=== PATIENT | male | born 1970 | race Caucasian/White ===

== ENCOUNTER 2018-06-17 10:14 | Inpatient (IN) | payer SELFPAY ==
[~2018-06-17] VITALS: Ht 167.6 cm; Wt 108.4 kg
[2018-06-17] MEDS ORDERED: SODIUM CHLORIDE 0.9% 1,000 ML IV ONE (12:30)
[2018-06-17] MEDS ORDERED: ACETAMINOPHEN 325MG TABLET PO ONE (12:30)
[2018-06-17 14:19] LABS: CHLORIDE 95 mEq/L (98-107)
[2018-06-17 14:21] LABS: HEMOGLOBIN. 7.3 g/dL (14.0-18.0); MEAN CORPUSCULAR HEMOGLOBIN 35.3 pg (28.0-32.0); MEAN CORPUSCULAR VOLUME 101.3 fL (80.0-94.0); PLATELET 97 x1000/uL (130-400); RED BLOOD CELL COUNT 2.07 mill/uL (4.7-6.1); RED CELL DISTRIBUTION WIDTH 15.6 % (11.6-14.6)
[2018-06-17 14:27] LABS: INR 1.6; PARTIAL THROMBOPLASTIN TIME 36.8 sec (23.4-31.0); PROTHROMBIN TIME 15.7 sec (9.1-11.1)
[2018-06-17] MEDS ORDERED: HYDROCODONE/ACETAMINOPHEN 5/325MG TABLET PO ONE (14:30)
[2018-06-17 14:45] LABS: HEPATITIS B SURFACE ANTIGEN NEGATIVE
[2018-06-17 15:13] LABS: HEPATITIS B CORE AB IGM NEGATIVE
[2018-06-17 15:15] LABS: HEPATITIS A AB IGM NEGATIVE (NEGATIVE)
[2018-06-17 15:17] LABS: PLATELET ESTIMATE DECREASED
[2018-06-17] MEDS ORDERED: VANCOMYCIN 1 G PREMIX 200 ML IV ONE (18:30)
[2018-06-17] MEDS ORDERED: PIPERACILLIN/TAZ 2.25G PREMIX 50 ML IV ONE (18:30)
[2018-06-17] MEDS ORDERED: NA PHOS,M-B/NA PHOS,DI-BA ENEMA 118ML PR PRN (18:45)
[2018-06-17] MEDS ORDERED: CLONIDINE 0.1MG TABLET PO PRN (18:45)
[2018-06-17] MEDS ORDERED: DIPHENHYDRAMINE 50MG/ML VIAL IV PRN (18:45)
[2018-06-17] MEDS ORDERED: MAGNESIUM/ALUMINUM HYDROXIDE/SIMETHICONE 30ML UDC PO PRN (18:45)
[2018-06-17] MEDS ORDERED: ONDANSETRON HCL 4MG/2ML INJ IV PRN (18:45)
[2018-06-17] MEDS ORDERED: GUAIFENESIN 200MG/10ML SUGAR FREE UDC PO PRN (18:45)
[2018-06-17] MEDS ORDERED: DOCUSATE SODIUM 100MG CAPSULE PO PRN (18:45)
[2018-06-17] MEDS ORDERED: IPRATROPIUM/ALBUTEROL 0.5-3(2.5)MG/3ML NEB INH PRN (18:45)
[2018-06-17 19:19] LABS: VITAMIN B12 SERUM > 2000.0 pg/mL (211-911)
[2018-06-17 19:41] LABS: ETHANOL BLOOD < 10 mg/dL
[2018-06-17 19:44] LABS: TOTAL IRON BINDING CAPACITY 152 ug/dL (250-450)
[2018-06-17 23:00] VITALS: BP 127/52
[2018-06-17] MEDS ORDERED: ZOLPIDEM TARTRATE 5MG TABLET PO PRN (23:06)
[2018-06-17] MEDS ORDERED: KETOROLAC 15MG/ML VIAL IV PRN (23:06)
[2018-06-18] VITALS (7 sets, daily range): BP systolic 96–136; BP diastolic 44–65
[2018-06-18] MEDS ORDERED: PHYTONADIONE 10 MG in DEXTROSE 5% WATER 50 ML IV SCH (01:00)
[2018-06-18] MEDS ORDERED: CLINDAMYCIN 600 MG in DEXTROSE 5% WATER 50 ML IV SCH (01:00)
[2018-06-18 01:25] LABS: CREATINE KINASE 274 IU/L (39-308)
[2018-06-18 01:26] LABS: CREATINE KINASE MB FRACTION 3.5 ng/mL (0.5-3.6)
[2018-06-18 07:11] LABS: CHLORIDE 100 mEq/L (98-107)
[2018-06-18 07:20] LABS: CREATINE KINASE 191 IU/L (39-308)
[2018-06-18 08:15] LABS: MEAN CORPUSCULAR HEMOGLOBIN 36.3 pg (28.0-32.0); MEAN CORPUSCULAR VOLUME 102.1 fL (80.0-94.0); MEAN PLATELET VOLUME 11.1 fl (7.4-10.4); PLATELET 87 x1000/uL (130-400); RED BLOOD CELL COUNT 1.86 mill/uL (4.7-6.1); RED CELL DISTRIBUTION WIDTH 15.6 % (11.6-14.6)
[2018-06-18 08:15] LABS: *BARBITURATES SCREEN URINE NEGATIVE (NEGATIVE); *BENZODIAZEPINES SCREEN URINE NEGATIVE (NEGATIVE); *COCAINE SCREEN URINE NEGATIVE (NEGATIVE)
[2018-06-18 08:16] LABS: CANNABINOID URINE SCREEN NEGATIVE (NEGATIVE); METHADONE URINE SCREEN NEGATIVE (NEGATIVE); OPIATES URINE SCREEN PRESUMTIVE POSITIVE (NEGATIVE)
[2018-06-18 08:17] LABS: *AMPHETAMINES SCREEN URINE NEGATIVE (NEGATIVE); PHENCYCLIDINE URINE SCREEN NEGATIVE (NEGATIVE)
[2018-06-18 08:41] LABS: HEMOGLOBIN. 6.7 g/dL (14.0-18.0)
[2018-06-18] MEDS: CLINDAMYCIN 600MG PREMIX 50 ML IV SCH ×2 (09:15→16:30)
[2018-06-18] MEDS: ACETAMINOPHEN 325MG TABLET PO PRN ×2 (09:15→16:45)
[2018-06-18] MEDS: PANTOPRAZOLE SODIUM 40 MG/VIAL IV SCH (09:15)
[2018-06-18] MEDS ORDERED: PHYTONADIONE 10MG/ML AMP SUBCUT NR (12:45)
[2018-06-18 16:34] LABS: PLATELET ESTIMATE DECREASED
[2018-06-18 17:12] LABS: HEMATOCRIT 22.7 % (42.0-52.0); HEMOGLOBIN 7.9 g/dL (14.0-18.0)
[2018-06-18 17:17] LABS: INR 1.5; PROTHROMBIN TIME 15.2 sec (9.1-11.1)
[2018-06-19] VITALS (9 sets, daily range): BP systolic 112–127; BP diastolic 45–63
[2018-06-19] MEDS: CLINDAMYCIN 600MG PREMIX 50 ML IV SCH ×3 (00:46→16:29)
[2018-06-19] MEDS ORDERED: PHYTONADIONE 10MG/ML AMP SUBCUT NR (05:00)
[2018-06-19 06:37] LABS: INR 1.5; PROTHROMBIN TIME 15.4 sec (9.1-11.1)
[2018-06-19 06:41] LABS: AMMONIA 54 uMol/L (<32)
[2018-06-19 06:52] LABS: HEMATOCRIT. 22.6 % (42.0-52.0); MEAN CORPUSCULAR VOLUME 101.5 fL (80.0-94.0); MEAN PLATELET VOLUME 10.5 fl (7.4-10.4); PLATELET 92 x1000/uL (130-400); RED BLOOD CELL COUNT 2.22 mill/uL (4.7-6.1); RED CELL DISTRIBUTION WIDTH 16.4 % (11.6-14.6)
[2018-06-19 07:24] LABS: CHLORIDE 102 mEq/L (98-107)
[2018-06-19] MEDS: ACETAMINOPHEN 325MG TABLET PO PRN (08:03)
[2018-06-19] MEDS: PANTOPRAZOLE SODIUM 40 MG/VIAL IV SCH (08:37)
[2018-06-19] MEDS ORDERED: MIDAZOLAM HCL 5 MG/5 ML VIAL ONE (11:40)
[2018-06-19] MEDS ORDERED: DIPHENHYDRAMINE 50MG/ML VIAL ONE ×2 (11:40→12:22)
[2018-06-19] MEDS ORDERED: SIMETHICONE 40 MG/0.6 ML 30ML ONE (11:40)
[2018-06-19] MEDS ORDERED: FENTANYL CITRATE/PF 50MCG/ML 2ML VIAL ONE (11:41)
[2018-06-19] MEDS ORDERED: MIDAZOLAM HCL 2 MG/2 ML VIAL IV PRN (12:05)
[2018-06-19] MEDS ORDERED: FENTANYL CITRATE/PF 50MCG/ML 2ML VIAL IV PRN (12:06)
[2018-06-19] MEDS ORDERED: DIPHENHYDRAMINE 50MG/ML VIAL IV PRN (12:09)
[2018-06-19] MEDS ORDERED: SODIUM CHLORIDE 0.9% 10ML VIAL ONE (13:30)
[2018-06-19 14:20] LABS: PLATELET ESTIMATE DECREASED
[2018-06-20] MEDS: CLINDAMYCIN 600MG PREMIX 50 ML IV SCH ×2 (00:17→09:36)
[2018-06-20 04:00] VITALS: BP 114/51
[2018-06-20] MEDS ORDERED: PHYTONADIONE 10MG/ML AMP SUBCUT NR (07:00)
[2018-06-20 08:00] VITALS: BP 122/60
[2018-06-20] MEDS: PANTOPRAZOLE SODIUM 40 MG/VIAL IV SCH (09:37)
[2018-06-20 12:00] VITALS: BP 118/74
[2018-06-20 14:57] VITALS: BP 118/74
== END 2018-06-20 15:45 | disposition home or self-care (01) | DRG 280 ==
LOC: ER 10:14 → 7WST 18:13 → ENRESERV 20:42 → EDBEDREQ 22:41
PROVIDERS: ADMIT Internal Medicine; ATTEND Internal Medicine
PROC: 30233N1 Transfusion of Nonautologous Red Blood Cells into Peripheral Vein, Percutaneous Approach (ICD-10-PCS; principal; 2018-06-18)
PROC: 0DB78ZX Excision of Stomach, Pylorus, Via Natural or Artificial Opening Endoscopic, Diagnostic (ICD-10-PCS; 2018-06-19)
PROC: 06L38CZ Occlusion of Esophageal Vein with Extraluminal Device, Via Natural or Artificial Opening Endoscopic (ICD-10-PCS; 2018-06-19)
DX: K70.31 Alcoholic cirrhosis of liver with ascites (principal); E43 Unspecified severe protein-calorie malnutrition; D61.818 Other pancytopenia; D68.8 Other specified coagulation defects; D62 Acute posthemorrhagic anemia; E87.1 Hypo-osmolality and hyponatremia; I85.10 Secondary esophageal varices without bleeding; L03.116 Cellulitis of left lower limb; F10.10 Alcohol abuse, uncomplicated; K29.60 Other gastritis without bleeding; K31.89 Other diseases of stomach and duodenum; R07.89 Other chest pain; F17.210 Nicotine dependence, cigarettes, uncomplicated; Z68.38 Body mass index [BMI] 38.0-38.9, adult
CPT/HCPCS: 36415; 71045; 73590; 73630; 76705; 80053; 80076; 80305; 82140; 82248; 82270; 82550; 82553; 82607; 82746; 83036; 83540; 83550; 83880; 84484; 85014; 85018; 85025; 85049; 85384; 85610; 85730; 86705; 86709; 86803; 86850; 86900; 86920; 87040; 87086; 87340; 88305; 88312; 88313; 93005; 93970; 96365; 96366; 99152; 99285; A4216; C9113; G0482; J1200; J1885; J2250; J2543; J3010; J3370; J3430; J3490; J7030; J7040; J7050; J7060; P9016

== ENCOUNTER 2018-07-18 19:42 | Inpatient (IN) | payer SELFPAY ==
[~2018-07-18] VITALS: Ht 170.2 cm; Wt 111.1 kg
[2018-07-18] MEDS ORDERED: ONDANSETRON HCL 4MG/2ML INJ IV STA (21:16)
[2018-07-18] MEDS ORDERED: MORPHINE SULFATE 4 MG/ML CPJ (NOT FOR IM USE) IV STA (21:16)
[2018-07-18] MEDS ORDERED: SODIUM CHLORIDE 0.9% 1,000 ML IV ONE (21:19)
[2018-07-18] MEDS ORDERED: VANCOMYCIN 1 G PREMIX 200 ML IV ONE (21:30)
[2018-07-18] MEDS ORDERED: PIPERACILLIN/TAZ 3.375G PREMIX 50 ML IV ONE (21:30)
[2018-07-18 23:57] LABS: HEMOGLOBIN. 9.6 g/dL (14.0-18.0); MEAN CORPUSCULAR HEMOGLOBIN 31.9 pg (28.0-32.0); MEAN CORPUSCULAR VOLUME 93.4 fL (80.0-94.0); MEAN PLATELET VOLUME 9.4 fl (7.4-10.4); PLATELET 107 x1000/uL (130-400); RED CELL DISTRIBUTION WIDTH 15.4 % (11.6-14.6)
[2018-07-19 00:06] LABS: INR 1.5; PARTIAL THROMBOPLASTIN TIME 35.1 sec (23.4-31.0); PROTHROMBIN TIME 14.8 sec (9.1-11.1)
[2018-07-19 00:07] LABS: CHLORIDE 107 mEq/L (98-107)
[2018-07-19] MEDS ORDERED: FUROSEMIDE 40MG/4ML VIAL IV ONE (00:30)
[2018-07-19] MEDS ORDERED: NITROGLYCERIN OINT 1GM/INCH UDPKT TD ONE (00:30)
[2018-07-19] MEDS ORDERED: ASPIRIN 81MG TABLET PO ONE (00:30)
[2018-07-19 00:31] LABS: PLATELET ESTIMATE SLIGHTL
[2018-07-19 01:02] LABS: CLARITY URINE CLEAR (CLEAR); COLOR URINE DARK YELLOW (YELLOW); KETONES URINE TRACE (NEGATIVE); LEUKOCYTE ESTERASE URINE NEGATIVE (NEGATIVE); NITRITE URINE NEGATIVE (NEGATIVE); OCCULT BLOOD URINE NEGATIVE (NEGATIVE); PROTEIN URINE NEGATIVE (NEGATIVE); SPECIFIC GRAVITY URINE 1.025 (1.005-1.030)
[2018-07-19] MEDS ORDERED: POTASSIUM CHLORIDE 20MEQ TABLET SR PO ONE (01:45)
[2018-07-19] MEDS ORDERED: KETOROLAC 30MG/ML VIAL IV ONE (04:00)
[2018-07-19 08:00] VITALS: BP 123/59
[2018-07-19] MEDS ORDERED: DEXTROSE 50% WATER 50ML SYRINGE IV PRN (09:00)
[2018-07-19] MEDS ORDERED: ONDANSETRON HCL 4MG/2ML INJ IV PRN (09:00)
[2018-07-19] MEDS ORDERED: ACETAMINOPHEN 650MG SUPP PR PRN (09:00)
[2018-07-19] MEDS: PIPERACILLIN/TAZ 3.375G PREMIX 50 ML IV SCH ×2 (09:00→17:00)
[2018-07-19] MEDS ORDERED: ACETAMINOPHEN 325MG TABLET PO PRN (09:00)
[2018-07-19] MEDS ORDERED: POTASSIUM CHLORIDE 20MEQ TABLET SR PO PRN (09:00)
[2018-07-19] MEDS ORDERED: DOCUSATE SODIUM 100MG CAPSULE PO PRN (09:00)
[2018-07-19] MEDS ORDERED: GUAIFENESIN 200MG/10ML SUGAR FREE UDC PO PRN (09:00)
[2018-07-19] MEDS ORDERED: MAGNESIUM/ALUMINUM HYDROXIDE/SIMETHICONE 30ML UDC PO PRN (09:00)
[2018-07-19] MEDS ORDERED: ACETAMINOPHEN 650MG/20.3ML UDC GT PRN (09:00)
[2018-07-19] MEDS ORDERED: NA PHOS,M-B/NA PHOS,DI-BA ENEMA 118ML PR PRN (09:00)
[2018-07-19] MEDS ORDERED: CLONIDINE 0.1MG TABLET PO PRN (09:00)
[2018-07-19] MEDS ORDERED: IPRATROPIUM/ALBUTEROL 0.5-3(2.5)MG/3ML NEB INH PRN (09:00)
[2018-07-19 10:39] VITALS: BP 123/59
[2018-07-19 10:40] LABS: CHLORIDE 106 mEq/L (98-107)
[2018-07-19 10:47] LABS: HDL CHOLESTEROL 31 mg/dL (40-59); LDL CHOLESTEROL 69 mg/dL (5-100)
[2018-07-19] MEDS ORDERED: VANCOMYCIN 1 G PREMIX 200 ML IV SCH (11:00)
[2018-07-19 11:36] LABS: HEPATITIS B SURFACE ANTIGEN NEGATIVE
[2018-07-19] MEDS: BLOOD SUGAR DIAGNOSTIC STRIP TEST SCH ×3 (11:45→21:25)
[2018-07-19 11:48] LABS: HEMATOCRIT. 27.9 % (42.0-52.0); HEMOGLOBIN. 9.4 g/dL (14.0-18.0); MEAN CORPUSCULAR HEMOGLOBIN 31.8 pg (28.0-32.0); MEAN CORPUSCULAR VOLUME 94.4 fL (80.0-94.0); MEAN PLATELET VOLUME 9.8 fl (7.4-10.4); PLATELET 99 x1000/uL (130-400); RED BLOOD CELL COUNT 2.96 mill/uL (4.7-6.1); RED CELL DISTRIBUTION WIDTH 15.2 % (11.6-14.6)
[2018-07-19 12:00] VITALS: BP 144/37
[2018-07-19 12:04] LABS: HEPATITIS B CORE AB IGM NEGATIVE
[2018-07-19 12:06] LABS: HEPATITIS A AB IGM NEGATIVE (NEGATIVE)
[2018-07-19] MEDS: INSULIN LISPRO 100 UNITS/ML SUBCUT SCH ×3 (12:15→21:00)
[2018-07-19] MEDS: HYDROCODONE/ACETAMINOPHEN 10/325MG TABLET PO PRN ×2 (13:21→21:25)
[2018-07-19] MEDS ORDERED: INFLUENZA VIRUS VACCINE(AFLURIA) 0.5ML SYR IM ONE (14:00)
[2018-07-19] MEDS ORDERED: PNEUMOCOCCAL 23-VAL P-SAC VAC 0.5 ML IM ONE (14:00)
[2018-07-19] MEDS: SODIUM CHLORIDE 0.9% INJ 3ML FLUSH IVF SCH ×2 (14:18→22:00)
[2018-07-19 15:39] LABS: CREATINE KINASE 138 IU/L (39-308); CREATINE KINASE MB FRACTION 1.1 ng/mL (0.5-3.6)
[2018-07-19 16:00] VITALS: BP 113/50
[2018-07-19 16:15] LABS: CLARITY URINE CLEAR (CLEAR); COLOR URINE YELLOW (YELLOW); KETONES URINE NEGATIVE (NEGATIVE); LEUKOCYTE ESTERASE URINE NEGATIVE (NEGATIVE); NITRITE URINE NEGATIVE (NEGATIVE); OCCULT BLOOD URINE NEGATIVE (NEGATIVE); PH URINE 6.5 (4.5-8.0); PROTEIN URINE NEGATIVE (NEGATIVE); SPECIFIC GRAVITY URINE 1.008 (1.005-1.030); UROBILINOGEN URINE 0.2 E.U./dL (0.2-1.0)
[2018-07-19 16:44] LABS: *AMPHETAMINES SCREEN URINE NEGATIVE (NEGATIVE); *BARBITURATES SCREEN URINE NEGATIVE (NEGATIVE); *BENZODIAZEPINES SCREEN URINE NEGATIVE (NEGATIVE); *COCAINE SCREEN URINE NEGATIVE (NEGATIVE)
[2018-07-19 16:45] LABS: CANNABINOID URINE SCREEN NEGATIVE (NEGATIVE); METHADONE URINE SCREEN NEGATIVE (NEGATIVE); OPIATES URINE SCREEN PRESUMTIVE POSITIVE (NEGATIVE); PHENCYCLIDINE URINE SCREEN NEGATIVE (NEGATIVE)
[2018-07-19 20:00] VITALS: BP 114/58
[2018-07-19] MEDS: VANCOMYCIN 1 G PREMIX 200 ML IV SCH (21:59)
[2018-07-20] VITALS: BP 110/49
[2018-07-20 00:14] LABS: CREATINE KINASE 113 IU/L (39-308); CREATINE KINASE MB FRACTION 1.1 ng/mL (0.5-3.6)
[2018-07-20] MEDS: PIPERACILLIN/TAZ 3.375G PREMIX 50 ML IV SCH ×4 (02:38→23:59)
[2018-07-20 04:00] VITALS: BP 113/53
[2018-07-20 06:20] LABS: HEMATOCRIT. 27.3 % (42.0-52.0); HEMOGLOBIN. 9.1 g/dL (14.0-18.0); MEAN CORPUSCULAR HEMOGLOBIN 31.3 pg (28.0-32.0); MEAN PLATELET VOLUME 9.5 fl (7.4-10.4); PLATELET 96 x1000/uL (130-400); RED CELL DISTRIBUTION WIDTH 15.3 % (11.6-14.6)
[2018-07-20 06:47] LABS: CHLORIDE 106 mEq/L (98-107)
[2018-07-20] MEDS: VANCOMYCIN 1 G PREMIX 200 ML IV SCH ×3 (07:03→20:51)
[2018-07-20] MEDS: BLOOD SUGAR DIAGNOSTIC STRIP TEST SCH ×4 (07:04→20:51)
[2018-07-20] MEDS: INSULIN LISPRO 100 UNITS/ML SUBCUT SCH ×4 (07:04→20:52)
[2018-07-20] MEDS: SODIUM CHLORIDE 0.9% INJ 3ML FLUSH IVF SCH ×3 (07:04→20:51)
[2018-07-20] MEDS: HYDROCODONE/ACETAMINOPHEN 10/325MG TABLET PO PRN (07:09)
[2018-07-20 08:00] VITALS: BP 121/55
[2018-07-20 08:16] LABS: PLATELET ESTIMATE SLIGHTLY DECREASED
[2018-07-20 11:11] LABS: PLATELET ESTIMATE SLIGHTLY DECREASED
[2018-07-20 12:00] VITALS: BP 106/50
[2018-07-20 16:00] VITALS: BP 114/43
[2018-07-20 20:00] VITALS: BP 121/44
[2018-07-20] MEDS: HYDROCODONE/ACETAMINOPHEN 5/325MG TABLET PO PRN (23:59)
[2018-07-21] VITALS: BP 121/58
[2018-07-21 04:00] VITALS: BP 119/47
[2018-07-21] MEDS: VANCOMYCIN 1 G PREMIX 200 ML IV SCH ×3 (05:42→22:21)
[2018-07-21] MEDS: SODIUM CHLORIDE 0.9% INJ 3ML FLUSH IVF SCH ×3 (05:42→22:28)
[2018-07-21] MEDS: INSULIN LISPRO 100 UNITS/ML SUBCUT SCH ×4 (05:47→20:23)
[2018-07-21] MEDS: BLOOD SUGAR DIAGNOSTIC STRIP TEST SCH ×4 (05:47→20:23)
[2018-07-21 08:00] VITALS: BP 124/64
[2018-07-21] MEDS: PIPERACILLIN/TAZ 3.375G PREMIX 50 ML IV SCH ×2 (09:03→17:04)
[2018-07-21] MEDS: HYDROCODONE/ACETAMINOPHEN 5/325MG TABLET PO PRN (09:11)
[2018-07-21] MEDS ORDERED: LIDOCAINE HCL/PF 1% 10 MG/ML 30ML VIAL INFIL SCH (10:00)
[2018-07-21] MEDS ORDERED: LIDOCAINE HCL 1% 20ML VIAL (Pyxis) INJ INJ SCH (10:15)
[2018-07-21 12:00] VITALS: BP 94/53
[2018-07-21] MEDS: HYDROCODONE/ACETAMINOPHEN 10/325MG TABLET PO PRN ×2 (14:32→22:38)
[2018-07-21 16:00] VITALS: BP 113/45
[2018-07-21 20:00] VITALS: BP 126/56
[2018-07-22] VITALS: BP 102/51
[2018-07-22] MEDS: PIPERACILLIN/TAZ 3.375G PREMIX 50 ML IV SCH ×3 (02:28→16:53)
[2018-07-22 04:00] VITALS: BP 110/50
[2018-07-22] MEDS: BLOOD SUGAR DIAGNOSTIC STRIP TEST SCH ×3 (05:47→17:11)
[2018-07-22] MEDS: SODIUM CHLORIDE 0.9% INJ 3ML FLUSH IVF SCH ×2 (06:12→14:03)
[2018-07-22] MEDS: VANCOMYCIN 1 G PREMIX 200 ML IV SCH ×2 (06:13→14:03)
[2018-07-22] MEDS: INSULIN LISPRO 100 UNITS/ML SUBCUT SCH ×3 (06:18→17:11)
[2018-07-22 08:00] VITALS: BP 133/59
[2018-07-22 12:00] VITALS: BP 109/58
[2018-07-22] MEDS: HYDROCODONE/ACETAMINOPHEN 10/325MG TABLET PO PRN (13:20)
[2018-07-22 16:00] VITALS: BP 133/54
[2018-07-22 18:25] VITALS: BP 133/54
== END 2018-07-22 19:15 | disposition home or self-care (01) | DRG 380 ==
LOC: ER 19:42 → 5WST 07-19 00:56 → ENRESERV 07-19 06:13
PROVIDERS: ADMIT Family Medicine; ATTEND Family Medicine
PROC: 0JBR0ZZ Excision of Left Foot Subcutaneous Tissue and Fascia, Open Approach (ICD-10-PCS; principal; 2018-07-21)
PROC: 0JBR0ZZ Excision of Left Foot Subcutaneous Tissue and Fascia, Open Approach (ICD-10-PCS; 2018-07-21)
DX: E11.621 Type 2 diabetes mellitus with foot ulcer (principal); L97.523 Non-pressure chronic ulcer of other part of left foot with necrosis of muscle; L97.423 Non-pressure chronic ulcer of left heel and midfoot with necrosis of muscle; E43 Unspecified severe protein-calorie malnutrition; D68.9 Coagulation defect, unspecified; D69.6 Thrombocytopenia, unspecified; D63.8 Anemia in other chronic diseases classified elsewhere; D72.819 Decreased white blood cell count, unspecified; E66.9 Obesity, unspecified; L03.116 Cellulitis of left lower limb; F41.9 Anxiety disorder, unspecified; Z68.38 Body mass index [BMI] 38.0-38.9, adult; F10.10 Alcohol abuse, uncomplicated; K74.60 Unspecified cirrhosis of liver
CPT/HCPCS: 36415; 71045; 73630; 76705; 80061; 80202; 80305; 82550; 82553; 82962; 83036; 83605; 83880; 84484; 86705; 86709; 86803; 86850; 86900; 87070; 87075; 87077; 87186; 87340; 90686; 90732; 93005; 93922; 93970; 96365; 96366; 96368; 96375; 97116; 97162; 99285; J1885; J1940; J2270; J2405; J2543; J3370; J3490; J7030; J7050

== ENCOUNTER 2020-12-08 15:34 | Inpatient (IN) | payer MEDICAID ==
[~2020-12-08] VITALS: Ht 167.6 cm; Wt 97.1 kg
[2020-12-08] MEDS ORDERED: KETOROLAC 30MG/ML VIAL IV STA (15:53)
[2020-12-08] MEDS ORDERED: SODIUM CHLORIDE 0.9% 1,000 ML IV ONE (16:00)
[2020-12-08] MEDS ORDERED: DEXTROSE 5% WATER 1,000 ML IV ONE (16:30)
[2020-12-08] MEDS ORDERED: MORPHINE SULFATE 4 MG/ML CPJ (NOT FOR IM USE) IV ONE (16:30)
[2020-12-08] MEDS ORDERED: ONDANSETRON HCL 4MG/2ML INJ IV ONE (16:30)
[2020-12-08 17:03] LABS: HEMATOCRIT. 27.3 % (42.0-52.0); HEMOGLOBIN. 8.3 g/dL (14.0-18.0); MEAN CORPUSCULAR HEMOGLOBIN 20.8 pg (28.0-32.0); MEAN CORPUSCULAR VOLUME 68.1 fL (80.0-94.0); MEAN PLATELET VOLUME 8.5 fl (7.4-10.4); PLATELET 305 x1000/uL (130-400); RED BLOOD CELL COUNT 4.01 mill/uL (4.7-6.1); RED CELL DISTRIBUTION WIDTH 23.4 % (11.6-14.6)
[2020-12-08 17:06] LABS: CLARITY URINE CLOUDY (CLEAR); COLOR URINE ORANGE (YELLOW); KETONES URINE TRACE (NEGATIVE); LEUKOCYTE ESTERASE URINE 1+ (NEGATIVE); NITRITE URINE NEGATIVE (NEGATIVE); OCCULT BLOOD URINE 3+ (NEGATIVE); PROTEIN URINE 1+ (NEGATIVE); SPECIFIC GRAVITY URINE 1.026 (1.005-1.030); UROBILINOGEN URINE 0.2 E.U./dL (0.2-1.0)
[2020-12-08 17:12] LABS: CHLORIDE 98 mEq/L (98-107)
[2020-12-08 17:14] LABS: INR 1.5; PROTHROMBIN TIME 15.4 sec (9.6-11.0)
[2020-12-08] MEDS ORDERED: CALCIUM GLUCONATE 100MG/ML 10ML VIAL IV ONE (17:30)
[2020-12-08] MEDS ORDERED: KCL 10MEQ/50ML PREMIX 50 ML IV ONE (17:30)
[2020-12-08 17:33] LABS: *BARBITURATES SCREEN URINE NEGATIVE (NEGATIVE); *BENZODIAZEPINES SCREEN URINE NEGATIVE (NEGATIVE); *COCAINE SCREEN URINE NEGATIVE (NEGATIVE); METHADONE URINE SCREEN NEGATIVE (NEGATIVE); OPIATES URINE SCREEN NEGATIVE (NEGATIVE)
[2020-12-08 17:34] LABS: *AMPHETAMINES SCREEN URINE NEGATIVE (NEGATIVE); CANNABINOID URINE SCREEN NEGATIVE (NEGATIVE); PHENCYCLIDINE URINE SCREEN NEGATIVE (NEGATIVE)
[2020-12-08 17:52] LABS: PLATELET ESTIMATE NORMAL
[2020-12-08] MEDS ORDERED: METRONIDAZOLE 500 MG PREMIX 100 ML IV ONE (19:00)
[2020-12-08] MEDS ORDERED: CEFTRIAXONE 1 G PREMIX 50 ML IV ONE (19:00)
[2020-12-08] MEDS ORDERED: DIPHENHYDRAMINE 50MG/ML VIAL IV PRN (23:30)
[2020-12-08] MEDS ORDERED: IPRATROPIUM/ALBUTEROL 0.5-3(2.5)MG/3ML NEB HHN PRN (23:30)
[2020-12-08] MEDS ORDERED: ENOXAPARIN 40MG/0.4ML SYR SUBCUT SCH (23:30)
[2020-12-08] MEDS ORDERED: MAGNESIUM/ALUMINUM HYDROXIDE/SIMETHICONE 30ML UDC PO PRN (23:30)
[2020-12-08] MEDS ORDERED: ONDANSETRON HCL 4MG/2ML INJ IV PRN (23:30)
[2020-12-08] MEDS ORDERED: HYDRALAZINE 20MG/ML VIAL IV PRN (23:30)
[2020-12-08] MEDS ORDERED: CLONIDINE 0.1MG TABLET PO PRN (23:30)
[2020-12-08] MEDS ORDERED: GUAIFENESIN 200MG/10ML SUGAR FREE UDC PO PRN (23:30)
[2020-12-08] MEDS ORDERED: LORAZEPAM 2MG/ML CPJ IV PRN (23:30)
[2020-12-08] MEDS ORDERED: DOCUSATE SODIUM 100MG CAPSULE PO PRN (23:30)
[2020-12-09] VITALS: BP 126/64
[2020-12-09] MEDS: DEXT 5%/0.45% NACL 1000ML 1,000 ML IV SCH ×2 (00:26→17:52)
[2020-12-09] MEDS: ACETAMINOPHEN 325MG TABLET PO PRN (00:26)
[2020-12-09 04:00] VITALS: BP 120/49
[2020-12-09] MEDS: SODIUM CHLORIDE 0.9% INJ 3ML FLUSH IVF SCH ×3 (05:03→21:55)
[2020-12-09] MEDS: METRONIDAZOLE 500 MG PREMIX 100 ML IV SCH ×3 (05:03→21:55)
[2020-12-09 06:52] LABS: HEMOGLOBIN. 7.5 g/dL (14.0-18.0); MEAN CORPUSCULAR HEMOGLOBIN 20.7 pg (28.0-32.0); MEAN CORPUSCULAR VOLUME 68.6 fL (80.0-94.0); PLATELET 251 x1000/uL (130-400); RED BLOOD CELL COUNT 3.64 mill/uL (4.7-6.1); RED CELL DISTRIBUTION WIDTH 23.6 % (11.6-14.6)
[2020-12-09 06:57] LABS: CHLORIDE 98 mEq/L (98-107)
[2020-12-09 08:00] VITALS: BP 108/66
[2020-12-09] MEDS: ENOXAPARIN 30MG/0.3ML SYR SUBCUT SCH ×2 (09:46→21:01)
[2020-12-09 12:00] VITALS: BP 122/64
[2020-12-09] MEDS ORDERED: ASPI-986 PO (12:11)
[2020-12-09 14:20] LABS: CARCINO EMBRYONIC ANTIGEN 1.7 ng/ml
[2020-12-09] MEDS ORDERED: PHYTONADIONE 10MG/ML AMP SUBCUT NR (14:30)
[2020-12-09 14:31] LABS: HEPATITIS B SURFACE ANTIGEN NEGATIVE
[2020-12-09 15:00] LABS: HEPATITIS A AB IGM NEGATIVE (NEGATIVE)
[2020-12-09 16:00] VITALS: BP 106/57
[2020-12-09 20:00] VITALS: BP 135/109
[2020-12-09] MEDS: MORPHINE SULFATE 2 MG/ML CPJ (NOT FOR IM USE) IV PRN (21:00)
[2020-12-09] MEDS: CEFTRIAXONE 1,000 MG in DEXTROSE 5% WATER 50 ML IV SCH (21:04)
[2020-12-09 22:35] LABS: PLATELET ESTIMATE NORMAL
[2020-12-10] VITALS (18 sets, daily range): BP systolic 99–123; BP diastolic 53–90
[2020-12-10] MEDS: ACETAMINOPHEN 325MG TABLET PO PRN (00:27)
[2020-12-10 00:28] LABS: HEMATOCRIT 21.7 % (42.0-52.0)
[2020-12-10 00:41] LABS: HEMOGLOBIN 6.6 g/dL (14.0-18.0)
[2020-12-10] MEDS: DEXT 5%/0.45% NACL 1000ML 1,000 ML IV SCH ×2 (03:37→15:27)
[2020-12-10] MEDS: SODIUM CHLORIDE 0.9% INJ 3ML FLUSH IVF SCH ×3 (06:30→22:41)
[2020-12-10] MEDS: ENOXAPARIN 30MG/0.3ML SYR SUBCUT SCH ×2 (09:00→20:34)
[2020-12-10] MEDS ORDERED: PHYTONADIONE 10MG/ML AMP SUBCUT NR (09:00)
[2020-12-10] MEDS: METRONIDAZOLE 500 MG PREMIX 100 ML IV SCH ×3 (10:02→22:40)
[2020-12-10] MEDS: HYDROCODONE/ACETAMINOPHEN 5/325MG TABLET PO PRN ×3 (10:03→22:40)
[2020-12-10 10:14] LABS: INR 1.7; PROTHROMBIN TIME 17.5 sec (9.6-11.0)
[2020-12-10 10:15] LABS: HEMATOCRIT. 26.8 % (42.0-52.0); HEMOGLOBIN. 8.3 g/dL (14.0-18.0); MEAN CORPUSCULAR HEMOGLOBIN 22.3 pg (28.0-32.0); MEAN CORPUSCULAR VOLUME 72.1 fL (80.0-94.0); MEAN PLATELET VOLUME 8.3 fl (7.4-10.4); PLATELET 270 x1000/uL (130-400); RED BLOOD CELL COUNT 3.72 mill/uL (4.7-6.1); RED CELL DISTRIBUTION WIDTH 22.9 % (11.6-14.6)
[2020-12-10 10:24] LABS: CHLORIDE 96 mEq/L (98-107)
[2020-12-10 15:18] LABS: ATYPICAL LYMPHOCYTES 2; PLATELET ESTIMATE NORMAL
[2020-12-10 16:48] LABS: HEMATOCRIT 25.2 % (42.0-52.0); HEMOGLOBIN 7.6 g/dL (14.0-18.0)
[2020-12-10] MEDS: CEFTRIAXONE 1,000 MG in DEXTROSE 5% WATER 50 ML IV SCH (20:33)
[2020-12-10] MEDS: MORPHINE SULFATE 2 MG/ML CPJ (NOT FOR IM USE) IV PRN (20:42)
[2020-12-11] VITALS: BP 99/61
[2020-12-11 04:00] VITALS: BP 99/62
[2020-12-11] MEDS: SODIUM CHLORIDE 0.9% INJ 3ML FLUSH IVF SCH ×3 (05:25→22:57)
[2020-12-11] MEDS: DEXT 5%/0.45% NACL 1000ML 1,000 ML IV SCH ×2 (05:25→18:54)
[2020-12-11] MEDS: METRONIDAZOLE 500 MG PREMIX 100 ML IV SCH ×3 (05:25→22:57)
[2020-12-11] MEDS: HYDROCODONE/ACETAMINOPHEN 5/325MG TABLET PO PRN ×2 (05:32→20:31)
[2020-12-11 07:45] LABS: INR 1.6; PROTHROMBIN TIME 16.2 sec (9.6-11.0)
[2020-12-11 08:00] VITALS: BP 107/60
[2020-12-11] MEDS: ENOXAPARIN 30MG/0.3ML SYR SUBCUT SCH (08:18)
[2020-12-11 08:29] LABS: HEMATOCRIT. 27.1 % (42.0-52.0); HEMOGLOBIN. 8.4 g/dL (14.0-18.0); MEAN CORPUSCULAR HEMOGLOBIN 22.4 pg (28.0-32.0); MEAN CORPUSCULAR VOLUME 72.4 fL (80.0-94.0); MEAN PLATELET VOLUME 8.3 fl (7.4-10.4); PLATELET 312 x1000/uL (130-400); RED BLOOD CELL COUNT 3.74 mill/uL (4.7-6.1); RED CELL DISTRIBUTION WIDTH 22.6 % (11.6-14.6)
[2020-12-11] MEDS ORDERED: PHYTONADIONE 10MG/ML AMP SUBCUT NR (09:00)
[2020-12-11 11:58] LABS: VITAMIN B12 SERUM >2000 pg/mL pg/mL (211-911)
[2020-12-11 12:00] VITALS: BP 95/54
[2020-12-11 14:11] LABS: FERRITIN 38 ng/mL (22-322)
[2020-12-11] MEDS: ACETAMINOPHEN 325MG TABLET PO PRN (15:08)
[2020-12-11 16:00] VITALS: BP 103/58
[2020-12-11 18:37] LABS: PLATELET ESTIMATE NORMAL
[2020-12-11 20:00] VITALS: BP 98/67
[2020-12-11] MEDS: CEFTRIAXONE 1,000 MG in DEXTROSE 5% WATER 50 ML IV SCH (20:21)
[2020-12-12] VITALS: BP 109/60
[2020-12-12 04:00] VITALS: BP 108/58
[2020-12-12] MEDS: MORPHINE SULFATE 2 MG/ML CPJ (NOT FOR IM USE) IV PRN (04:36)
[2020-12-12] MEDS: SODIUM CHLORIDE 0.9% INJ 3ML FLUSH IVF SCH ×3 (05:12→22:00)
[2020-12-12] MEDS: METRONIDAZOLE 500 MG PREMIX 100 ML IV SCH ×3 (05:12→23:18)
[2020-12-12 05:53] LABS: HEMATOCRIT. 25.7 % (42.0-52.0); HEMOGLOBIN. 7.9 g/dL (14.0-18.0); MEAN CORPUSCULAR HEMOGLOBIN 22.4 pg (28.0-32.0); MEAN PLATELET VOLUME 8.6 fl (7.4-10.4); PLATELET 277 x1000/uL (130-400); RED BLOOD CELL COUNT 3.53 mill/uL (4.7-6.1); RED CELL DISTRIBUTION WIDTH 22.7 % (11.6-14.6)
[2020-12-12 05:59] LABS: INR 1.6
[2020-12-12 08:00] VITALS: BP 107/62
[2020-12-12] MEDS ORDERED: PHYTONADIONE 10MG/ML AMP SUBCUT NR (08:00)
[2020-12-12] MEDS: DEXT 5%/0.45% NACL 1000ML 1,000 ML IV SCH ×2 (09:32→21:01)
[2020-12-12] MEDS ORDERED: IOHEXOL-350 100 ML BOTTLE ONE (11:19)
[2020-12-12 12:00] VITALS: BP 136/59
[2020-12-12 12:22] LABS: PLATELET ESTIMATE NORMAL
[2020-12-12 16:00] VITALS: BP 109/62
[2020-12-12] MEDS: HYDROCODONE/ACETAMINOPHEN 5/325MG TABLET PO PRN ×2 (16:49→21:03)
[2020-12-12 20:00] VITALS: BP 115/47
[2020-12-12] MEDS: CEFTRIAXONE 1,000 MG in DEXTROSE 5% WATER 50 ML IV SCH (20:35)
[2020-12-13] VITALS (13 sets, daily range): BP systolic 90–120; BP diastolic 43–64
[2020-12-13] MEDS: MORPHINE SULFATE 2 MG/ML CPJ (NOT FOR IM USE) IV PRN (04:48)
[2020-12-13] MEDS: METRONIDAZOLE 500 MG PREMIX 100 ML IV SCH ×2 (05:09→12:50)
[2020-12-13] MEDS: SODIUM CHLORIDE 0.9% INJ 3ML FLUSH IVF SCH ×3 (05:09→21:39)
[2020-12-13 06:23] LABS: INR 1.6
[2020-12-13 06:29] LABS: CHLORIDE 92 mEq/L (98-107)
[2020-12-13 06:36] LABS: HEMATOCRIT. 24.2 % (42.0-52.0); HEMOGLOBIN. 7.6 g/dL (14.0-18.0); MEAN CORPUSCULAR HEMOGLOBIN 22.7 pg (28.0-32.0); MEAN CORPUSCULAR VOLUME 72.2 fL (80.0-94.0); MEAN PLATELET VOLUME 8.1 fl (7.4-10.4); PLATELET 238 x1000/uL (130-400); RED BLOOD CELL COUNT 3.35 mill/uL (4.7-6.1); RED CELL DISTRIBUTION WIDTH 22.8 % (11.6-14.6)
[2020-12-13] MEDS: HYDROCODONE/ACETAMINOPHEN 5/325MG TABLET PO PRN (11:12)
[2020-12-13] MEDS: DEXT 5%/0.45% NACL 1000ML 1,000 ML IV SCH (11:12)
[2020-12-13] MEDS ORDERED: POTASSIUM CHLORIDE 20MEQ TABLET SR PO NR (13:00)
[2020-12-13 16:09] LABS: INR 1.6
[2020-12-13 16:54] LABS: PLATELET ESTIMATE NORMAL
[2020-12-13] MEDS: METRONIDAZOLE 250MG TABLET PO SCH (16:56)
[2020-12-13] MEDS: VANCOMYCIN HCL 1000 MG/20 ML ORAL PO SCH (17:20)
[2020-12-13 19:09] LABS: OVA & PARASITE EXAM Final report (.)
[2020-12-13] MEDS: CEFTRIAXONE 1,000 MG in DEXTROSE 5% WATER 50 ML IV SCH (20:32)
[2020-12-14] VITALS (14 sets, daily range): BP systolic 104–120; BP diastolic 38–82
[2020-12-14] MEDS: METRONIDAZOLE 250MG TABLET PO SCH ×5 (00:03→23:34)
[2020-12-14] MEDS: VANCOMYCIN HCL 1000 MG/20 ML ORAL PO SCH ×5 (00:08→23:34)
[2020-12-14] MEDS: SODIUM CHLORIDE 0.9% INJ 3ML FLUSH IVF SCH ×3 (05:40→21:16)
[2020-12-14 08:03] LABS: INR 1.6; PROTHROMBIN TIME 16.4 sec (9.6-11.0)
[2020-12-14 08:08] LABS: CHLORIDE 97 mEq/L (98-107)
[2020-12-14 08:15] LABS: HEMATOCRIT. 21.1 % (42.0-52.0); MEAN CORPUSCULAR VOLUME 72.5 fL (80.0-94.0); MEAN PLATELET VOLUME 8.6 fl (7.4-10.4); PLATELET 175 x1000/uL (130-400); RED CELL DISTRIBUTION WIDTH 24.1 % (11.6-14.6)
[2020-12-14 08:30] LABS: HEMOGLOBIN. 6.7 g/dL (14.0-18.0)
[2020-12-14 15:51] LABS: HEMATOCRIT 21.8 % (42.0-52.0)
[2020-12-14] MEDS ORDERED: SORBITOL 70% SOLN 30ML PO SCH ×2 (16:00→20:00)
[2020-12-14] MEDS: FERROUS SULFATE 325MG TABLET PO SCH (17:56)
[2020-12-14] MEDS: PANTOPRAZOLE SODIUM 40 MG/VIAL IV SCH (20:24)
[2020-12-14] MEDS: ASCORBIC ACID 500 MG TABLET PO SCH (20:24)
[2020-12-14 21:34] LABS: PLATELET ESTIMATE NORMAL
[2020-12-14] MEDS: DEXT 5%/0.45% NACL 1000ML 1,000 ML IV SCH (23:35)
[2020-12-15] VITALS (18 sets, daily range): BP systolic 105–126; BP diastolic 50–81
[2020-12-15 01:03] LABS: HEMATOCRIT 27.2 % (42.0-52.0); HEMOGLOBIN 9.1 g/dL (14.0-18.0)
[2020-12-15] MEDS: METRONIDAZOLE 250MG TABLET PO SCH ×3 (05:40→19:17)
[2020-12-15] MEDS: VANCOMYCIN HCL 1000 MG/20 ML ORAL PO SCH ×3 (05:40→18:00)
[2020-12-15] MEDS: SODIUM CHLORIDE 0.9% INJ 3ML FLUSH IVF SCH ×3 (05:40→21:51)
[2020-12-15 06:29] LABS: INR 1.6; PARTIAL THROMBOPLASTIN TIME 47.3 sec (23.4-31.0); PROTHROMBIN TIME 16.6 sec (9.6-11.0)
[2020-12-15 06:38] LABS: HEMATOCRIT. 24.9 % (42.0-52.0); HEMOGLOBIN. 8.2 g/dL (14.0-18.0); MEAN CORPUSCULAR HEMOGLOBIN 24.7 pg (28.0-32.0); MEAN CORPUSCULAR VOLUME 75.3 fL (80.0-94.0); MEAN PLATELET VOLUME 8.6 fl (7.4-10.4); PLATELET 186 x1000/uL (130-400); RED BLOOD CELL COUNT 3.31 mill/uL (4.7-6.1)
[2020-12-15 06:39] LABS: CHLORIDE 102 mEq/L (98-107)
[2020-12-15] MEDS ORDERED: SODIUM BICARBONATE 4% (2.4MEQ) 5ML VIAL IV ONE (08:12)
[2020-12-15] MEDS ORDERED: LIDOCAINE HCL 1% 20ML VIAL (Pyxis) INJ ONE (08:12)
[2020-12-15] MEDS: ASCORBIC ACID 500 MG TABLET PO SCH ×2 (08:26→21:51)
[2020-12-15] MEDS: PANTOPRAZOLE SODIUM 40 MG/VIAL IV SCH ×2 (08:26→21:51)
[2020-12-15] MEDS: FERROUS SULFATE 325MG TABLET PO SCH ×3 (08:26→19:17)
[2020-12-15] MEDS ORDERED: FENTANYL CITRATE/PF 50MCG/ML 2ML VIAL IV NR (08:49)
[2020-12-15] MEDS ORDERED: FENTANYL CITRATE/PF 50MCG/ML 2ML VIAL ONE (08:49)
[2020-12-15] MEDS ORDERED: POTASSIUM CHLORIDE 20MEQ TABLET SR PO NR (10:00)
[2020-12-15] MEDS ORDERED: POTASSIUM CHLORIDE INJ 40 MEQ in DEXT 5% WATER 250 ML IV SCH (12:00)
[2020-12-15] MEDS: DEXT 5%/0.45% NACL 1000ML 1,000 ML IV SCH (12:31)
[2020-12-15 16:33] LABS: PLATELET ESTIMATE NORMAL
[2020-12-15 16:44] LABS: HEMOGLOBIN 9.2 g/dL (14.0-18.0)
[2020-12-15] MEDS ORDERED: MIDAZOLAM HCL 5 MG/5 ML VIAL IV PRN (17:00)
[2020-12-15] MEDS ORDERED: FENTANYL CITRATE/PF 50MCG/ML 2ML VIAL IV PRN (17:02)
[2020-12-15] MEDS ORDERED: MIDAZOLAM HCL 5 MG/5 ML VIAL ONE (17:45)
[2020-12-16] VITALS (7 sets, daily range): BP systolic 99–115; BP diastolic 46–60
[2020-12-16] MEDS: VANCOMYCIN HCL 1000 MG/20 ML ORAL PO SCH ×4 (01:39→19:02)
[2020-12-16] MEDS: METRONIDAZOLE 250MG TABLET PO SCH ×4 (01:39→19:02)
[2020-12-16] MEDS: SODIUM CHLORIDE 0.9% INJ 3ML FLUSH IVF SCH (06:00)
[2020-12-16] MEDS: FERROUS SULFATE 325MG TABLET PO SCH ×3 (07:16→19:04)
[2020-12-16] MEDS: ASCORBIC ACID 500 MG TABLET PO SCH (10:34)
[2020-12-16] MEDS: PANTOPRAZOLE SODIUM 40 MG/VIAL IV SCH (10:34)
[2020-12-16] MEDS: DEXT 5%/0.45% NACL 1000ML 1,000 ML IV SCH (12:06)
[2020-12-16] MEDS ORDERED: HYDROCODONE/ACETAMINOPHEN 5/325MG TABLET PO SCH (13:30)
== END 2020-12-16 20:22 | disposition home or self-care (01) | DRG 720 ==
LOC: ER 15:34 → ENRESERV 21:18 → 5EST 23:16 → 8WST 12-13 11:40
PROVIDERS: ADMIT Internal Medicine; ATTEND Internal Medicine
PROC: 0JBP0ZZ Excision of Left Lower Leg Subcutaneous Tissue and Fascia, Open Approach (ICD-10-PCS; principal; 2020-12-09)
PROC: 0JBN0ZZ Excision of Right Lower Leg Subcutaneous Tissue and Fascia, Open Approach (ICD-10-PCS; 2020-12-09)
PROC: 30233M1 Transfusion of Nonautologous Plasma Cryoprecipitate into Peripheral Vein, Percutaneous Approach (ICD-10-PCS; 2020-12-13)
PROC: 30233N1 Transfusion of Nonautologous Red Blood Cells into Peripheral Vein, Percutaneous Approach (ICD-10-PCS; 2020-12-14)
PROC: 0DB78ZX Excision of Stomach, Pylorus, Via Natural or Artificial Opening Endoscopic, Diagnostic (ICD-10-PCS; 2020-12-15)
PROC: 0DBL8ZX Excision of Transverse Colon, Via Natural or Artificial Opening Endoscopic, Diagnostic (ICD-10-PCS; 2020-12-15)
PROC: 0W9G3ZZ Drainage of Peritoneal Cavity, Percutaneous Approach (ICD-10-PCS; 2020-12-15)
PROC: 0FB13ZX Excision of Right Lobe Liver, Percutaneous Approach, Diagnostic (ICD-10-PCS; 2020-12-15)
PROC: 0JBP0ZZ Excision of Left Lower Leg Subcutaneous Tissue and Fascia, Open Approach (ICD-10-PCS; 2020-12-16)
PROC: 0JBN0ZZ Excision of Right Lower Leg Subcutaneous Tissue and Fascia, Open Approach (ICD-10-PCS; 2020-12-16)
DX: A41.9 Sepsis, unspecified organism (principal); D50.9 Iron deficiency anemia, unspecified; D68.9 Coagulation defect, unspecified; E43 Unspecified severe protein-calorie malnutrition; E86.0 Dehydration; K52.9 Noninfective gastroenteritis and colitis, unspecified; E87.1 Hypo-osmolality and hyponatremia; E87.6 Hypokalemia; I87.8 Other specified disorders of veins; K70.31 Alcoholic cirrhosis of liver with ascites; N39.0 Urinary tract infection, site not specified; K76.6 Portal hypertension; K82.8 Other specified diseases of gallbladder; F41.9 Anxiety disorder, unspecified; F10.10 Alcohol abuse, uncomplicated; Y90.9 Presence of alcohol in blood, level not specified; R73.9 Hyperglycemia, unspecified; L60.2 Onychogryphosis; K22.11 Ulcer of esophagus with bleeding; K31.89 Other diseases of stomach and duodenum; K29.71 Gastritis, unspecified, with bleeding; K44.9 Diaphragmatic hernia without obstruction or gangrene; Z20.822 Contact with and (suspected) exposure to COVID-19; K50.10 Crohn's disease of large intestine without complications; L97.909 Non-pressure chronic ulcer of unspecified part of unspecified lower leg with unspecified severity; N17.9 Acute kidney failure, unspecified; A04.72 Enterocolitis due to Clostridium difficile, not specified as recurrent; Z68.34 Body mass index [BMI] 34.0-34.9, adult
CPT/HCPCS: 36415; 49083; 74176; 74178; 76700; 76942; 78278; 80048; 80053; 80305; 81003; 82040; 82105; 82140; 82247; 82248; 82270; 82378; 82607; 82728; 82746; 83540; 83550; 83735; 85014; 85018; 85025; 86301; 86705; 86709; 86803; 86850; 86900; 86920; 86927; 87015; 87045; 87070; 87075; 87077; 87177; 87186; 87209; 87340; 87426; 87427; 87449; 88108; 88305; 88307; 88312; 88313; 89055; 93005; 93923; 99152; 99285; A9560; C9113; J0610; J0696; J1650; J1885; J2250; J2270; J2405; J3010; J3370; J3430; J3480; J3490; J7030; J7040; J7060; J7070; P9016; P9017; Q9967; G0500

== ENCOUNTER 2020-12-24 16:36 | Inpatient (IN) | payer MEDICAID ==
[~2020-12-24] VITALS: Ht 167.6 cm; Wt 99.8 kg
[2020-12-24] MEDS ORDERED: MORPHINE SULFATE 4 MG/ML CPJ (NOT FOR IM USE) IV STA (19:22)
[2020-12-24] MEDS ORDERED: ONDANSETRON HCL 4MG/2ML INJ IV STA (19:22)
[2020-12-24] MEDS ORDERED: SODIUM CHLORIDE 0.9% 1,000 ML IV ONE (19:30)
[2020-12-24] MEDS ORDERED: VANCOMYCIN HCL 1 GM/VIAL PO STA (20:44)
[2020-12-24 20:54] LABS: HEMOGLOBIN. 7.1 g/dL (14.0-18.0); MEAN CORPUSCULAR HEMOGLOBIN 25.1 pg (28.0-32.0); MEAN CORPUSCULAR VOLUME 81.6 fL (80.0-94.0); MEAN PLATELET VOLUME 8.3 fl (7.4-10.4); PLATELET 225 x1000/uL (130-400); RED BLOOD CELL COUNT 2.82 mill/uL (4.7-6.1); RED CELL DISTRIBUTION WIDTH 27.5 % (11.6-14.6)
[2020-12-24 20:58] LABS: CHLORIDE 104 mEq/L (98-107)
[2020-12-24 21:01] LABS: INR 1.4; PROTHROMBIN TIME 15.1 sec (9.6-11.0)
[2020-12-24 21:22] LABS: PLATELET ESTIMATE NORMAL
[2020-12-25 02:25] VITALS: BP 114/52
[2020-12-25 04:00] VITALS: BP 102/50
[2020-12-25 04:15] LABS: HEMATOCRIT 24.7 % (42.0-52.0); HEMOGLOBIN 7.4 g/dL (14.0-18.0)
[2020-12-25] MEDS ORDERED: ONDANSETRON HCL 4MG/2ML INJ IV PRN (04:15)
[2020-12-25 04:56] LABS: CHLORIDE 105 mEq/L (98-107)
[2020-12-25] MEDS ORDERED: FERR15DR7 MT (04:56)
[2020-12-25] MEDS ORDERED: ASCO500C18 PO (04:56)
[2020-12-25] MEDS: LEVOFLOXACIN 500MG PREMIX 100 ML IV SCH (05:59)
[2020-12-25] MEDS: DEXT 5%/0.45% NACL KCL 20MEQ/L 1,000 ML IV SCH ×3 (06:23→21:21)
[2020-12-25 07:47] VITALS: BP 106/55
[2020-12-25] MEDS: METRONIDAZOLE 500 MG PREMIX 100 ML IV SCH ×3 (08:09→22:01)
[2020-12-25] MEDS: PANTOPRAZOLE SODIUM 40 MG/VIAL IV SCH (08:09)
[2020-12-25] MEDS: DOCUSATE SODIUM 250MG CAPSULE PO SCH (09:00)
[2020-12-25 10:51] LABS: HEMATOCRIT. 22.4 % (42.0-52.0); HEMOGLOBIN. 7.1 g/dL (14.0-18.0); MEAN CORPUSCULAR HEMOGLOBIN 26.3 pg (28.0-32.0); MEAN CORPUSCULAR VOLUME 82.9 fL (80.0-94.0); MEAN PLATELET VOLUME 8.3 fl (7.4-10.4); PLATELET 152 x1000/uL (130-400); RED CELL DISTRIBUTION WIDTH 25.6 % (11.6-14.6)
[2020-12-25 11:53] VITALS: BP 101/57
[2020-12-25 13:44] LABS: PLATELET ESTIMATE NORMAL
[2020-12-25] MEDS: FERROUS SULFATE 325MG TABLET PO SCH ×2 (13:47→17:43)
[2020-12-25] MEDS: MORPHINE SULFATE 2 MG/ML CPJ (NOT FOR IM USE) IV PRN ×2 (14:16→22:21)
[2020-12-25 15:50] VITALS: BP 99/56
[2020-12-25 20:00] VITALS: BP 105/51
[2020-12-26] VITALS (13 sets, daily range): BP systolic 91–116; BP diastolic 41–61
[2020-12-26] MEDS: DEXT 5%/0.45% NACL KCL 20MEQ/L 1,000 ML IV SCH ×2 (07:29→13:39)
[2020-12-26] MEDS: LEVOFLOXACIN 500MG PREMIX 100 ML IV SCH (07:29)
[2020-12-26] MEDS: PANTOPRAZOLE SODIUM 40 MG/VIAL IV SCH (08:40)
[2020-12-26] MEDS: DOCUSATE SODIUM 250MG CAPSULE PO SCH (08:40)
[2020-12-26] MEDS: METRONIDAZOLE 500 MG PREMIX 100 ML IV SCH ×2 (08:41→14:44)
[2020-12-26] MEDS: FERROUS SULFATE 325MG TABLET PO SCH ×3 (08:48→17:49)
[2020-12-26 10:19] LABS: HEMATOCRIT. 24.7 % (42.0-52.0); HEMOGLOBIN. 7.5 g/dL (14.0-18.0); MEAN CORPUSCULAR HEMOGLOBIN 25.8 pg (28.0-32.0); MEAN CORPUSCULAR VOLUME 84.5 fL (80.0-94.0); MEAN PLATELET VOLUME 8.2 fl (7.4-10.4); PLATELET 133 x1000/uL (130-400); RED BLOOD CELL COUNT 2.92 mill/uL (4.7-6.1)
[2020-12-26 10:26] LABS: CHLORIDE 104 mEq/L (98-107)
[2020-12-26 11:55] LABS: PLATELET ESTIMATE NORMAL
[2020-12-26] MEDS ORDERED: METR500T MT (16:06)
[2020-12-26] MEDS ORDERED: FERR325T23 PO (16:06)
[2020-12-26] MEDS ORDERED: LEVO500T89 MT (16:06)
[2020-12-26] MEDS ORDERED: DOCU250C14 PO (16:06)
[2020-12-27] MEDS ORDERED: METRONIDAZOLE 500MG TABLET PO SCH (06:00)
[2020-12-27] MEDS ORDERED: LEVOFLOXACIN 500MG TABLET PO SCH (11:00)
== END 2020-12-26 21:20 | disposition home or self-care (01) | DRG 249 ==
LOC: ER 16:36 → 6EST 22:52 → ENRESERV 12-25 01:11
PROVIDERS: ADMIT Internal Medicine; ATTEND Internal Medicine
PROC: 30233N1 Transfusion of Nonautologous Red Blood Cells into Peripheral Vein, Percutaneous Approach (ICD-10-PCS; principal; 2020-12-26)
DX: K52.9 Noninfective gastroenteritis and colitis, unspecified (principal); K70.31 Alcoholic cirrhosis of liver with ascites; E43 Unspecified severe protein-calorie malnutrition; E87.1 Hypo-osmolality and hyponatremia; I87.8 Other specified disorders of veins; D64.9 Anemia, unspecified; D68.9 Coagulation defect, unspecified; C22.0 Liver cell carcinoma; D70.9 Neutropenia, unspecified; K22.10 Ulcer of esophagus without bleeding; F41.9 Anxiety disorder, unspecified; K59.00 Constipation, unspecified; F10.10 Alcohol abuse, uncomplicated; Y90.9 Presence of alcohol in blood, level not specified; K80.20 Calculus of gallbladder without cholecystitis without obstruction; I73.9 Peripheral vascular disease, unspecified; Z87.891 Personal history of nicotine dependence; Z85.05 Personal history of malignant neoplasm of liver; Z68.35 Body mass index [BMI] 35.0-35.9, adult
CPT/HCPCS: 36415; 74176; 80048; 80053; 84450; 85014; 85018; 85025; 86850; 86900; 86920; 87015; 87045; 87177; 87209; 87427; 87449; 87493; 89055; 93005; 99285; C9113; J1956; J2270; J2405; J3370; J3490; J7030; J7040; P9016